=== PATIENT | female | born 1940 | race Caucasian/White ===

== ENCOUNTER 2017-02-14 19:24 | Emergency (ER) | payer MEDICARE ==
--- NOTE | 2017-02-14 19:52 | UC ---
Dizzy HPI HPI Summary: The patient comes in today for: 1. Laceration: Onset: 12 hours ago. Palliative/provocative: Sore to touch Quality: Soreness Region: Back of head. Severity: 0/10 Time: Constant. Associated symptoms: Tetanus: "Up to date." Event: She was in her chair at home ([place]) and reaching forward when she fell out and hit her head on the rocker chair. She did not have any LOC and she called the nurse who evaluated the patient. Eventually, she was seen by the nurse who cleaned it and used several dressing which did not help. She was later at that time to come here to have the laceration repaired. When the patient was at our front desk auxiliary, she stated that she felt woozy and therefore she was brought back to a room and had an EKG done. She denies any problem but her laceration and her health care proxy state that this is her history. * - History Of Current Complaint Stated Complaint: DIZZINESS Time Seen by Provider: 02/14/17 19:39 Hx Obtained From: Patient, Family/Managed Care Nurse - Allergies/Home Medications Allergies/Adverse Reactions: Allergies Allergy/AdvReac Type Severity Reaction Status Date / Time Epinephrine Allergy Severe See Comment Verified 05/03/13 10:44 PMH/Surg Hx/FS Hx/Imm Hx Previously Healthy: No - Parkinson's disease, irritable bowel, ulcerative proctivits. Endocrine History Of: Reports: Thyroid Disease - HYPO Denies: Diabetes, Hyperthyroidism, Hypothyroidism, Dyslipidemia Cardiovascular History Of: Denies: Cardiac Disorders, Hypertension, Pacemaker/ICD, Myocardial Infarction , Congestive Heart Failure, Atrial Fibrillation, Deep Vein Thrombosis, Bleeding Disorders Respiratory History Of: Denies: COPD, Asthma, Bronchitis, Pneumonia, Pulmonary Embolism GI/ History Of: Reports: Ulcer Denies: Gastroesophageal Reflux, Gastrointestinal Bleed, Gall Bladder Disease , Kidney Stones, Diverticulitis, Renal Disease, Urosepsis Neurological History Of: Denies: TIA, CVA, Dementia, Seizures, Migraine Psychological History Of: Reports: Anxiety Denies: Depression, Bipolar Disorder, Schizophrenia, Post Traumatic Stress Disorder Cancer History Of: Denies: Lung Cancer, Colorectal Cancer, Breast Cancer, Prostate Cancer, Cervical Cancer Other History Of: Negative For: HIV, Hepatitis B, Hepatitis C, Anticoagulant Therapy - Surgical History Surgical History: Yes Surgery Procedure, Year, and Place: LEFT EYE CATARACT - 4 YEARS AGO [facility]. TONSIL - 194. 1951 - [place] [facility] - Family History Known Family History: Positive: Hypertension Negative: Cardiac Disease - Social History Occupation: Retired Lives: Alone Alcohol Use: None Substance Use Type: None Smoking Status (MU): Never Smoked Tobacco Review of Systems Constitutional: Negative Skin: Negative Eyes: Negative ENT: Negative Respiratory: Negative Cardiovascular: Negative All Other Systems Reviewed And Are Negative: Yes Physical Exam Triage Information Reviewed: Yes Appearance: Well-Appearing, No Pain Distress, Well-Nourished Vital Signs Reviewed: Yes Eyes: Positive: Conjunctiva Clear. Negative: Discharge ENT: Positive: Hearing grossly normal. Negative: Pharyngeal erythema, Nasal congestion, Nasal drainage, TM bulging, TM dull, TM red, Tonsillar swelling, Tonsillar exudate Dental: Negative: Gross Decay/Caries @, Dental Fracture @ Neck: Positive: Supple, Nontender, No Lymphadenopathy. Negative: Nuchal Rigidity Respiratory: Positive: Lungs clear, No respiratory distress, No accessory muscle use. Negative: Crackles, Wheezing Cardiovascular: Positive: RRR, No Murmur Abdomen Description: Positive: Nontender, No Organomegaly, Soft. Negative: Distended, Guarding Musculoskeletal: Positive: Strength Intact, ROM Intact, No Edema, Other: - she has a tremor of her left lower leg and a mask facies consistent with Parkinsons. She has rigidity of her musculature and shuffling gait.. Negative : ROM Limited @ Neurological: Positive: Alert, Muscle Tone Normal Psychological: Positive: Normal Response To Family, Age Appropriate Behavior, Consolable Skin: Positive: Other - Laceration on the back of her head.. Negative: rashes, breakdown Procedures - Laceration/Wound Repair 1 Location: head Description: Irregular Betadine Prep?: No Laceration/Wound Explored: clean Closure: [place] #__ - 2 Sterile Dressing Applied?: No Dizzy Course/Dx - Differential Dx/Diagnosis Provider Diagnoses: high blood pressure. Laceration back of head. Discharge - Discharge Plan Condition: Stable Disposition: HOME Patient Education Materials: [facility] (ED) Referrals: An Wilkins MD [Primary Care Provider] - 1 Week (Please follow up with your primary care provider in about 7 days to have your robe removed. If there is any increasing redness or tenderness or swelling, or discharge, please be seen sooner. Take [id number] medications as needed for pain.)
[2017-02-14 20:20] VITALS: BP 168/80
== END 2017-02-14 21:39 | disposition home or self-care (01) ==
LOC: UCEAST 19:24
DX: S01.01XA Laceration without foreign body of scalp, initial encounter (principal); W07.XXXA Fall from chair, initial encounter; Y93.89 Activity, other specified; Y92.199 Unspecified place in other specified residential institution as the place of occurrence of the external cause; R42 Dizziness and giddiness; R03.0 Elevated blood-pressure reading, without diagnosis of hypertension; G20 Parkinson's disease; E03.9 Hypothyroidism, unspecified; Z98.42 Cataract extraction status, left eye
CPT/HCPCS: 12001; 12020; 93005; 99202; G0463

== ENCOUNTER 2017-12-12 22:52 | Emergency (ER) | payer MEDICARE ==
[2017-12-12] MEDS ORDERED: LORazepam INJ* 2 MG/ML 1 ML VIAL IV PUSH ONE (23:24)
[2017-12-12] MEDS ORDERED: Labetalol IV* 5 MG/ML 20 ML VIAL IV PUSH ONE (23:24)
[2017-12-13] MEDS ORDERED: Carbidopa/Levodop 25/100 MG TAB(*) PO ONE (00:37)
[2017-12-13] MEDS ORDERED: Gabapentin CAP(*) 100 MG PO ONE (00:38)
[2017-12-13 00:57] VITALS: BP 192/81
--- NOTE | 2017-12-13 01:23 | ED ---
Dimple Jerez Edward, scribed for Demi Sanders MD on 12/12/17 at 2313 . Hypertension - HPI Summary HPI Summary: 77 y/o female BIBA c/o general weakness starting earlier today. Sx not aggravated or alleviated by anything. Associated sx: intermittent L leg twitching today and L toe cramping. The twitching is worse than normal. Pt states she doesn't believe she can get up and walk currently. Pt typically uses a walker. Denies history of seizure. PMHx Parkinson's and anxiety. - History of Current Complaint Chief Complaint: EDHypertension Stated Complaint: WEAKNESS Time Seen by Provider: 12/12/17 22:59 Hx Obtained From: Patient Hx Last Menstrual Period: menopause Onset/Duration: Started Hours Ago Timing: Constant Aggravating Factor(s): Nothing Alleviating Factor(s): Nothing Associated Signs & Symptoms: Other: - twitching at LLE and cramping at L toes - Allergies/Home Medications Allergies/Adverse Reactions: Allergies Allergy/AdvReac Type Severity Reaction Status Date / Time MS Epinephrine [Epinephrine] Allergy Severe See Comment Verified 05/03/13 10:44 PMH/Surg Hx/FS Hx/Imm Hx Previously Healthy: No Endocrine/Hematology History: Reports: Hx Thyroid Disease - HYPO Denies: Hx Anticoagulant Therapy, Hx Diabetes, Hx Sickle Cell Disease Cardiovascular History: Denies: Hx Congestive Heart Failure, Hx Deep Vein Thrombosis, Hx Hypertension , Hx Myocardial Infarction, Hx Pacemaker/ICD, Other Cardiovascular Problems/ Disorders Respiratory History: Denies: Hx Asthma, Hx Chronic Obstructive Pulmonary Disease (COPD), Hx Lung Cancer, Hx Pneumonia, Hx Pulmonary Embolism, Other Respiratory Problems/ Disorders GI History: Reports: Hx Ulcer Denies: Hx Gall Bladder Disease, Hx Gastrointestinal Bleed, Hx Urosepsis History: Denies: Hx Kidney Stones, Hx Renal Disease, Other Problems/Disorders Musculoskeletal History: Reports: Hx Arthritis - KNEES Sensory History: Reports: Hx Cataracts, Hx Contacts or Glasses - GLASSEES Denies: Hx Hearing Aid Opthamlomology History: Reports: Hx Cataracts, Hx Contacts or Glasses - GLASSEES Neurological History: Denies: Hx Dementia, Hx Migraine, Hx Seizures, Hx Transient Ischemic Attacks (TIA), Other Neuro Impairments/Disorders Psychiatric History: Reports: Hx Anxiety Denies: Hx Depression, Hx Schizophrenia, Hx Bipolar Disorder - Surgical History Surgery Procedure, Year, and Place: LEFT EYE CATARACT - 4 YEARS AGO [facility] [place]. TONSIL - 1949. 1952 - [place] Hx Anesthesia Reactions: No Infectious Disease History: No Infectious Disease History: Reports: Hx Shingles - x2 Denies: History Other Infectious Disease, Traveled Outside the [place] in Last 30 Days - Family History Known Family History: Positive: Hypertension Negative: Cardiac Disease - Social History Alcohol Use: None Hx Substance Use: No Substance Use Type: Reports: None Hx Tobacco Use: No Smoking Status (MU): Never Smoked Tobacco Review of Systems Constitutional: Negative Eyes: Negative ENT: Negative Cardiovascular: Negative Respiratory: Negative Gastrointestinal: Negative Genitourinary: Negative Positive: Other - L toe cramping Skin: Negative Neurological: Other - L leg twitching Positive: Weakness Psychological: Normal All Other Systems Reviewed And Are Negative: Yes Physical Exam - Summary Physical Exam Summary: VITAL SIGNS: Reviewed. GENERAL: Patient is a well-developed and nourished female who is lying comfortable in the stretcher. Patient is not in any acute respiratory distress. HEAD AND FACE: No signs of trauma. No ecchymosis, hematomas or skull depressions. No sinus tenderness. EYES: PERRLA, EOMI x 2, No injected conjunctiva, no nystagmus. EARS: Hearing grossly intact. Ear canals and tympanic membranes are within normal limits. MOUTH: Oropharynx within normal limits. NECK: Supple, trachea is midline, no adenopathy, no JVD, no carotid bruit, no c- spine tenderness, neck with full ROM. CHEST: Symmetric, no tenderness at palpation LUNGS: Clear to auscultation bilaterally. No wheezing or crackles. CVS: Regular rate and rhythm, S1 and S2 present, no murmurs or gallops appreciated. ABDOMEN: Soft, non-tender. No signs of distention. No rebound no guarding, and no masses palpated. Bowel sounds are normal. EXTREMITIES: Static tremors of L foot. NEURO: Alert and oriented x 3. No acute neurological deficits. Speech is normal and follows commands. SKIN: Dry and warm Triage Information Reviewed: Yes Vital Signs On Initial Exam: Initial Vitals Temp Pulse Resp BP Pulse Ox 98.5 F 90 19 199/89 94 12/12/17 22:57 12/12/17 22:57 12/12/17 22:57 12/12/17 22:57 12/12/17 22:57 Vital Signs Reviewed: Yes Diagnostics - Vital Signs Vital Signs Temp Pulse Resp BP Pulse Ox 12/12/17 22:57 98.5 F 90 19 199/89 94 - Laboratory Lab Statement: Any lab studies that have been ordered have been reviewed, and results considered in the medical decision making process. - EKG 1 EKG Interpretation: SR @ 83 BPM. Normal axis normal interval no ischemic changes. Hypertension Course/Dx - Course Assessment/Plan: EKG normal. CXR negative. Pt declined IV and other treatment at this time. Pt wants to be sent back to the long term and will be sent back. Pt signed out AMA. - Diagnoses Provider Diagnoses: Hypertension, Parkinsons Discharge - Discharge Plan Condition: Stable Disposition: AGAINST MEDICAL ADVICE Referrals: An Wilkins MD [Primary Care Provider] - The documentation as recorded by the Dimple gordon Edward accurately reflects the service I personally performed and the decisions made by , Demi Sanders MD.
--- NOTE | 2017-12-13 07:49 | RAD ---
HISTORY: Weakness COMPARISONS: None VIEWS: 1: frontal portable view of the chest at 11:54 PM FINDINGS: LINES AND TUBES: None. CARDIOMEDIASTINAL SILHOUETTE: The cardiomediastinal silhouette is normal for portable technique. PLEURA: The costophrenic angles are sharp. No pleural abnormalities are noted. LUNG PARENCHYMA: There is minimal linear opacification of left lung base. ABDOMEN: The upper abdomen is clear. There is no subphrenic gas. BONES AND SOFT TISSUES: No bone or soft tissue abnormalities are noted. IMPRESSION: MINIMAL LINEAR ATELECTASIS VERSUS PLEUROPARENCHYMAL SCARRING OF THE LEFT LUNG BASE. NO ACTIVE CARDIOPULMONARY DISEASE
== END 2017-12-13 01:10 | disposition left against medical advice (07) ==
LOC: ED 22:52
DX: I10 Essential (primary) hypertension (principal); G20 Parkinson's disease; R53.1 Weakness
CPT/HCPCS: 71045; 93005; 99283; A9270-GY

== ENCOUNTER → 2018-11-26 16:34 | Emergency (ER) | payer MEDICARE ==
[~2018-11-26 16:34] MED LIST: Baclofen TAB* 10 MG PO ONE; Carbidopa/Levodop 25/100 MG TAB(*) PO ONE; Gabapentin CAP(*) 100 MG PO ONE; Hydrochlorothiazide TAB* 25 MG PO ONE; LORazepam INJ* 2 MG/ML 1 ML VIAL IV PUSH ONE; LORazepam TAB(*) 1 MG PO ONE; cloNIDine TAB* 0.1 MG PO ONE; clonazePAM TAB(*) 1 MG PO ONE
--- OUTSIDE RECORDS SUMMARY | 2018-11-26 16:41 | XMS REPORT | Continuity of Care Document ---
:1940 External Reference #:[id number] Author Name Sandra Chirinos Care Team Providers Name Role Phone An Wilkins MD Primary Care Physician Unavailable Payers Type Date Identification Numbers Payment Provider Subscriber Effective: 2012 Policy Number: [id number] Medicare Blue Ppo An Lebroner PayID: [id number] [address] [address] [place] [address] Policy Number: [id number] Formerly [facility] nA Lebroner PayID: [id number] [place] [address] Expires: 2012 Policy Number: [id number] Medicare Blue Ppo An Lebroner PayID: [id number] [address] [address] [place] [address] Advance Directives Description No Information Available Problems Date Description Provider Status Onset: 09/10/2014 Parkinson's disease Tiffanie Castillo M.D. Active Onset: 11/29/2014 Restless legs Sara Baptiste, N.P. Active Onset: 11/29/2014 Hypothyroidism Sara Oliva, N.P. Active Onset: 11/29/2014 Osteopenia Sara Oliva, N.P. Active Onset: 11/29/2014 Nonspecific ulcerative proctitis Sara Oliva, N.P. Active Onset: 11/29/2014 Osteochondropathy Sara Oliva, N.P. Active Onset: 11/16/2016 Disorder of bone Saraabdelrahman Baptiste, N.P. Active Onset: 01/13/2018 Olecranon bursitis Pablito Valedz MD Active Onset: 02/15/2012 Herpes zoster Maye Garcia, Resolved N.P. Resolved: 12/22/2013 Family History Date Family Member(s) Problem(s) Comments Father due to Colon Cancer () Father due to Prostate Cancer () Father due to myasthenia gravis () - age-81 Mother due to Parkinsons Disease () - 81 Social History Type Date Description Comments Sex Unknown Marital Status Single Lives With Assisted living Occupation Teacher third grade Hand Dominance Left-handed Hand Dominance Ambidextrous ETOH Use Denies alcohol use Tobacco Use Start: Unknown Patient has never smoked Smoking Status Reviewed: 11/16/18 Patient has never smoked Exercise Type/Frequency Exercises regularly Allergies, Adverse Reactions, Alerts Description No Known Drug Allergies Medications Medication Date Status Form Strength Qnty SIG Indications Ordering Provider Requip XL 05/17 Active Tablets ER 6mg 30tab 1 tab by José Luis 24HR s mouth 30 CrispinAnnaDAndrae minutes before bedtime Vitamin B12 04/22 Active Tablets ER 1000mcg 30tab 1 by mouth Tiffanie s every day Chapo Castillo Polyethylene 04/22 Active Packet 3350NF 8.5 grams Tiffanie Glycol 335 mixed with Cowderyvette, 6 oz fluid M.D. by mouth every day Carbidopa-Levo 03/10 Active Tablets 25-100mg 90tab 1.5 Tiffanie dopa s tablets by yesica Castillo @ M.D. 5am,8am,11 :30am, 2pm, 4:30pm, and 1 tablet at 7 pm Clonazepam 12/14 Active Tablets 0.5mg 10tab /2 tab by F41.1 s mouth MAKSIM Wagner twice a day Azilect 11/15 Active Tablets 0.5mg 30tab take one s tablet MAKSIM Wagner daily Baclofen 06/18 Active Tablets 10mg 120ta may take 1 G24.8 bs by mouth [place], four times M.D. a day Vitamin D 11/29 Active Tablets 1000Unit 30tab 1 by mouth s every day Oliva, N.P. Acetaminophen 11/29 Active Tablets 325mg 100ta 1 tab po q Sara bs 4 hours Oliva, prn of N.P. pain or leg/foot crampas Sinemet CR 07/06 Active Tablets ER 25-100mg 270ta take 1 by Tiffanie bs mouth at Jonathan, 5:00 in M.D. the morning and 2 tabs by mouth at at bedtime Miralax Active Powder 3350NF 30 17 gm as Sara / s 1/2 dose Oliva, every day N.P. Levothyroxine Active Tablets 75mcg 30tab 1 Tab By Sara Sodium /0000 s Mouth Oliva, Every Day N.P. except two days a week: 37.5 MG Artificial Active Solution 0.1-0.3% 1 gtt prn Unknown Tears /0000 each eye Cortisporin-TC Active Suspension 3.3-3-10- 3 gtts to Unknown / 0.5mg/ml each ear tid prn Gabapentin Active Capsules 100mg 4 tabs at Unknown /0000 lunch, 2 tabs at 7 PM, 2 tabs at 10 PM Biotene Dry Active Liquid as Unknown Mouth /0000 directed Milk Of Active Suspension 400mg/5ML 30ml by Unknown Magnesia / mouth every day as needed Paroxetine HCL Active Tablets 20mg 1 by mouth Unknown /0000 every day Vitamin B-12 Active Tablets 1000mcg take 1 by Unknown /0000 mouth each day Amantadine HCL 09/14 Hx Capsules 100mg 30cap 1 by mouth G20 s every [facility], - morning M.D. 11/16 Baclofen 07/15 Hx Tablets 5mg 90tab 5 mg po s q3hrs prn Chapo Brown - - may have 08/23 one prn dose (in addition to routine tid dosing) must be 2 hrs before or after routine dose. Baclofen 07/15 Hx Tablets 5mg 90tab s Chapo Brown - 09/13 Baclofen 07/15 Hx Tablets 5mg 90tab 5 mg po s tid, no Chapo Brown - need to 08/23 notify resident refuses. MDD 20 mg including prn dosing Ropinirole HCL 04/22 Hx Tablets ER 2mg 90tab take 3 by R53.83 Tiffanie 24HR s mouth at [facility], - bedtime M.D. 05/17 Requip XL 04/04 Hx Tablets ER 4mg 30tab 2 tabs R53.83 Sara 24HR s (8mg) po q Oliva, - hs N.P. 04/22 Sinemet 12/17 Hx Tablets 25-100mg 90tab 1.5 tabs s at 5 Am, 8 [facility], - Am, 11:30 M.D. 0516 Am, 2 PM, 4:30 PM, 7 PM Sertraline HCL 01/23 Hx Tablets 50mg 30tab 1 by mouth s every day, Jonathan, - takes 25 M.D. 06 MG in Am, 75 MG in PM Requip XL 12/09 Hx Tablets ER 2mg 90tab take by 24HR s mouth Jonathan, - every M.D. 06/17 night at bedtime in addition to 8mg tablet Azilect 12/09 Hx Tablets 1mg 90tab 1 by mouth s every day Jonathan, - M.D. 11/17 Sertraline HCL 11/29 Hx Tablets 25mg 30tab take one s tablet by Oliva, - mouth N.P. 01/23 morning Requip XL 11/12 Hx Tablets ER 6mg 30tab 1 tab PO 24HR s QHS Beth [employer] - 11/12 Requip XL 11/12 Hx Tablets ER 8mg 90tab every 24HR s enening at [facility], - 8:30pm by M.DAndrae 04/04 Azilect 11/06 Hx Tablets 0.5mg 60tab 1 tab by Sara s mouth Oliva, - daily x 1 N.P. 12/09 month increase to 2 tabs daily Requip XL 09/10 Hx Tablets ER 2mg 90tab take by 332.0 24HR s mouth Jonathan, - every M.D. 10/02 night at bedtime in addition to 4mg tablet Anucort-HC 09/07 Hx Suppository 25mg 30uni instill ts one [place] - rectally on, N.P. 09/05 q Requip XL 04/19 Hx Tablets ER 4mg 30tab 1 tab by 332.0 24HR s mouth qhs. Jonathan, - M.D. 11/12 Requip XL 02/09 Hx Tablets ER 2mg 60tab try 24HR s increasing Jonathan, - to 2 M.D. 07/12 tablets po qhs. If tolerated we will switch to 4mg xr tablets. Sinemet 07/06 Hx Tablets 25-100mg 195ta take 1 Sara /2011 bs tablets by Oliva, - mouth at N.P. 10/18 Metamucil Hx Powder 28.3% 30uni 1 teaspoon Sara /0000 ts once a day Oliva, - N.P. 07/03 Vitamin D-1000 Hx Tablets 1000Unit 30tab 1 po qd Unknown /0000 s - 11/29 Multivitamins Hx Tablets 1/2 tab po Unknown /0000 daily - 11/13 Finacea Hx Gel 15% 50uni apply to Unknown /0000 ts affected - area once 11/29 Optivar Hx Solution 0.05% 3bott 1 drop to Sara /0000 les each eye Oliva, - daily N.P. 10/18 Proctosol HC Hx Cream 2.5% 28.35 apply Sara /0000 0gm rectally Oliva, - twice a N.P. needed Xanax Hx Tablets 0.25mg 15tab 1/2 tab by Sara /0000 s mouth Oliva, - every day N.P. 12/14 and 10/19 tab prn Sinemet Hx Tablets 25-100mg 255ta 1.5 tabs Tiffanie /0000 bs at 5 in [facility], - the M.D. 04/21 morning, 8am, 11am, 2 pm, 4:30 at night, and 1 tablet at 7pm Acetaminophen 00/00 Hx Suppository 650mg 1 as Unknown /0000 needed Q4 - hours as 02/22 Immunizations CPT Code Status Date Vaccine Lot # [id number] Given 07/30/2010 Influenza Virus 3Yrs & Over [id number] Given 10/22/2009 Influenza Virus Vaccine, Pandemic Formulation 47010 Given 10/22/2009 Administration Swine Flu Shot Vital Signs Date Vital Result Comment 11/16/2018 11:37am Heart Rate 80 /min BP Systolic Sitting 128 mmHg BP Diastolic Sitting 80 mmHg 09/27/2018 10:11am Heart Rate 78 /min BP Systolic Sitting 106 mmHg BP Diastolic Sitting 60 mmHg Respiratory Rate 22 /min Body Temperature 97.7 F O2 % BldC Oximetry 96 % 09/14/2018 11:00am Height 64 inches 5'4" Weight 136.00 lb Heart Rate 70 /min BP Systolic 140 mmHg BP Diastolic 78 mmHg BMI (Body Mass Index) 23.3 kg/m2 04/22/2018 11:08am Weight 144.50 lb Heart Rate 72 /min BP Systolic Sitting 120 mmHg BP Diastolic Sitting 80 mmHg Respiratory Rate 20 /min 01/13/2018 10:56am Height 64 inches 5'4" Weight 141.00 lb BP Systolic 122 mmHg BP Diastolic 64 mmHg Respiratory Rate 15 /min Pain Level 1 BMI (Body Mass Index) 24.2 kg/m2 12/17/2017 9:00am Height 64 inches 5'4" Weight 141.00 lb Heart Rate 80 /min BP Systolic Sitting 128 mmHg BP Diastolic Sitting 70 mmHg BMI (Body Mass Index) 24.2 kg/m2 12/14/2017 9:58am Weight 141.00 lb Heart Rate 79 /min BP Systolic Sitting 118 mmHg BP Diastolic Sitting 68 mmHg Respiratory Rate 18 /min Body Temperature 97.4 F O2 % BldC Oximetry 95 % 11/18/2017 10:02am Weight 142.00 lb Heart Rate 72 /min BP Systolic 122 mmHg BP Diastolic 68 mmHg Respiratory Rate 24 /min Body Temperature 97.5 F O2 % BldC Oximetry 98 % 09/07/2017 9:51am Heart Rate 70 /min BP Systolic Sitting 120 mmHg BP Diastolic Sitting 78 mmHg Respiratory Rate 18 /min Body Temperature 97.0 F 06/18/2017 11:19am Height 64 inches 5'4" Weight 142.00 lb Heart Rate 72 /min BP Systolic Sitting 124 mmHg BP Diastolic Sitting 76 mmHg Respiratory Rate 18 /min BMI (Body Mass Index) 24.4 kg/m2 03/17/2017 10:32am Height 64 inches 5'4" Weight 140.00 lb Heart Rate 68 /min BP Systolic Sitting 122 mmHg BP Diastolic Sitting 64 mmHg Respiratory Rate 14 /min BMI (Body Mass Index) 24.0 kg/m2 02/22/2017 10:08am Weight 143.00 lb Heart Rate 79 /min BP Systolic Sitting 122 mmHg BP Diastolic Sitting 76 mmHg Respiratory Rate 20 /min Body Temperature 98.8 F O2 % BldC Oximetry 97 % 12/18/2016 11:31am Height 64 inches 5'4" Weight 143.00 lb Heart Rate 72 /min BP Systolic Sitting 124 mmHg BP Diastolic Sitting 68 mmHg Respiratory Rate 14 /min BMI (Body Mass Index) 24.5 kg/m2 11/16/2016 10:15am Weight 148.31 lb Heart Rate 84 /min BP Systolic Sitting 160 mmHg BP Diastolic Sitting 88 mmHg Respiratory Rate 20 /min Body Temperature 97.5 F O2 % BldC Oximetry 97 % 06/17/2016 11:31am Height 64 inches 5'4" Weight 144.38 lb Heart Rate 72 /min BP Systolic Sitting 122 mmHg BP Diastolic Sitting 72 mmHg Respiratory Rate 14 /min BMI (Body Mass Index) 24.8 kg/m2 02/24/2016 1:58pm Height 64 inches 5'4" Weight 151.00 lb Heart Rate 78 /min BP Systolic Sitting 126 mmHg BP Diastolic Sitting 80 mmHg Respiratory Rate 16 /min BMI (Body Mass Index) 25.9 kg/m2 10/21/2015 10:58am Height 64 inches 5'4" Weight 150.00 lb Heart Rate 72 /min BP Systolic Sitting 148 mmHg BP Diastolic Sitting 74 mmHg Respiratory Rate 16 /min BMI (Body Mass Index) 25.7 kg/m2 08/09/2015 3:04pm Heart Rate 73 /min BP Systolic Sitting 130 mmHg BP Diastolic Sitting 74 mmHg Respiratory Rate 20 /min Body Temperature 97.6 F 08/05/2015 3:31pm Weight 155.00 lb Heart Rate 58 /min BP Systolic Sitting 120 mmHg BP Diastolic Sitting 60 mmHg Respiratory Rate 18 /min Body Temperature 96.3 F O2 % BldC Oximetry 95 % 07/04/2015 11:50am Height 64 inches 5'4" Weight 152.38 lb Heart Rate 56 /min BP Systolic Sitting 114 mmHg BP Diastolic Sitting 76 mmHg Respiratory Rate 14 /min BMI (Body Mass Index) 26.2 kg/m2 01/23/2015 9:45am Weight 159.00 lb Heart Rate 76 /min BP Systolic Sitting 156 mmHg BP Diastolic Sitting 84 mmHg Respiratory Rate 16 /min 11/29/2014 1:12pm Weight 161.38 lb Heart Rate 77 /min BP Systolic 128 mmHg BP Diastolic 70 mmHg Respiratory Rate 20 /min O2 % BldC Oximetry 96 % 10/02/2014 11:59am Height 64.7 inches 5'4.70" Weight 169.12 lb Heart Rate 88 /min BP Systolic 140 mmHg BP Diastolic 80 mmHg Respiratory Rate 24 /min Body Temperature 96.1 F Pain Level 0 O2 % BldC Oximetry 98 % BMI (Body Mass Index) 28.4 kg/m2 09/10/2014 11:48am Height 64 inches 5'4" Weight 170.50 lb Heart Rate 68 /min BP Systolic Sitting 132 mmHg BP Diastolic Sitting 76 mmHg Respiratory Rate 16 /min BMI (Body Mass Index) 29.3 kg/m2 05/14/2014 11:01am Height 64 inches 5'4" Weight 164.00 lb Heart Rate 70 /min BP Systolic Sitting 140 mmHg BP Diastolic Sitting 78 mmHg Respiratory Rate 16 /min BMI (Body Mass Index) 28.1 kg/m2 12/22/2013 1:28pm Heart Rate 80 /min BP Systolic 138 mmHg BP Diastolic 70 mmHg Respiratory Rate 20 /min Body Temperature 97.5 F 11/13/2013 11:36am Heart Rate 80 /min BP Systolic Sitting 140 mmHg BP Diastolic Sitting 70 mmHg Respiratory Rate 16 /min 05/05/2013 9:35am Heart Rate 97 /min BP Systolic 128 mmHg BP Diastolic 72 mmHg Respiratory Rate 20 /min Body Temperature 96.2 F 04/19/2013 2:34pm Heart Rate 84 /min BP Systolic Sitting 152 mmHg BP Diastolic Sitting 82 mmHg Respiratory Rate 16 /min 02/15/2012 4:09pm Heart Rate 82 /min BP Systolic 122 mmHg BP Diastolic 72 mmHg Respiratory Rate 24 /min Body Temperature 97.1 F Results Test Date Facility Test Result H/L Range Note Laboratory test 11/18/2015 [facility] TSH 0.66 ?IU/mL N 0.34- 5.[address] ([place] [address] Stim Horm) [phone] Procedures Date Code Description Status 09/27/2018 26276 Remove Impacted Cerumen Completed 08/09/2015 00125 Remove Impacted Cerumen Completed 08/05/2015 76872 Remove Impacted Cerumen Completed 12/22/2013 86726 Remove Impacted Cerumen Completed 09/02/2011 95683 Remove Impacted Cerumen Completed 07/24/2010 54908 Remove Impacted Cerumen Completed 12/30/2009 05796 Remove Impacted Cerumen Completed 05/02/2009 34597 Remove Impacted Cerumen Completed 04/29/2009 79658 Remove Impacted Cerumen Completed Encounters Type Date Location Provider Dx Diagnosis Office Visit 09/14/2018 [facility] Tiffanie Castillo, G20 Parkinson's 10:30a M.DAndrae disease G25.81 Restless legs syndrome R53.83 Other fatigue G24.9 Dystonia, unspecified M17.9 Osteoarthritis of knee, unspecified Office Visit 04/22/2018 10:30a [facility] Tiffanie Castillo, G20 [facility] disease G25.81 Restless legs syndrome R53.83 Other fatigue G24.9 Dystonia, unspecified Office Visit 01/13/2018 10:45a [facility] F M70.21 [facility] MD José Miguel bursitis, right C.M.A. 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 Office Visit 12/14/2017 8:21a [facility] Melvin Wagner, I15.9 Secondary Home [employer] hypertension, unspecified F41.1 Generalized anxiety disorder G20 Parkinson's disease G25.81 Restless legs syndrome Office Visit 11/18/2017 10:35a [facility] Melvin Dixon S50.01xA Contusion of Home MAKSIM Peres right elbow, initial encounter Office Visit 09/07/2017 10:22a [facility] [place] Garcia W19.xxxA Unspecified fall, Home MAKSIM Wagner initial encounter M25.531 Pain in right wrist M25.521 Pain in right elbow M53.3 Sacrococcygeal disorders, not elsewhere classified S50.01xA Contusion of right elbow, initial encounter S60.211A Contusion of right wrist, initial encounter Office Visit 06/18/2017 11:00a [facility] Maggy Cruz [facility] M.D. disease G24.8 Other dystonia Office Visit 03/17/2017 10:30a [facility] Tiffanie Castillo G20 [facility] M.D. disease F41.1 Generalized anxiety disorder Office Visit 02/22/2017 10:17a [facility] [place] Baptiste, Z48.02 Encounter for Home N.P. removal of sutures Office Visit 12/18/2016 11:30a [facility] Tiffanie Castillo G2Nancy [facility] M.D. disease F41.1 Generalized anxiety disorder Office Visit 11/16/2016 10:45a Lauryn Baptiste, E03.9 Hypothyroidism , Intermediate N.P. unspecified M85.9 Disorder of bone density and structure, unspecified G20 Parkinson's disease L84 Corns and callosities Office Visit 06/17/2016 11:30a [facility] Tiffanie Castillo G20 [facility] M.D. disease F41.1 Generalized anxiety disorder Office Visit 02/24/2016 2:00p [facility] Tiffanie Castillo G20 [facility] M.D. disease F41.1 Generalized anxiety disorder Office Visit 10/21/2015 11:00a [facility] Tiffanie Castillo G20 [facility] M.D. disease F41.1 Generalized anxiety disorder Office Visit 07/04/2015 11:45a [facility] Tiffanie Castillo, 332.0 [facility] M.D. Agitans 333.79 Other Acquired Torsion Dystonia 300.02 Anxiety Disorder Generalized Office Visit 01/23/2015 9:30a [facility] Tiffanie Castillo, 332.0 [facility] M.D. Agitans 333.79 Other Acquired Torsion Dystonia 300.02 Anxiety Disorder Generalized Office Visit 11/29/2014 1:58p Lauryn Baptiste, 733.90 Bone & Cartilage Home N.P. Disorder Unspec 332.0 Paralysis Agitans 333.94 Restless Leg Syndrome 244.8 Hypothyroidism Other Spec 556.2 Ulcerative Chronic Proctitis 300.02 Anxiety Disorder Generalized 300.02 Anxiety Disorder Generalized 556.2 Ulcerative Chronic Proctitis 244.8 Hypothyroidism Other Spec 333.94 Restless Leg Syndrome 332.0 Paralysis Agitans 733.90 Bone & Cartilage Disorder Unspec Office Visit 10/02/2014 11:31a [facility] Nursing Evgeny Truong, 785.1 Palpitations Home [employer] Office Visit 09/10/2014 11:15a [facility] Tiffanie Castillo 332.0 Paralysis [facility] M.D. Office Visit 05/14/2014 11:00a [facility] Tiffanie Castillo 332.0 Paralysis [facility] M.DAndrae 333.79 Other Acquired Torsion Dystonia Office Visit 11/13/2013 11:30a [facility] Tifafnie Castillo 332.0 [facility] M.DAndrae Agitans 333.79 Other Acquired Torsion Dystonia Office Visit 09/07/2013 [facility] Melvin Villavicencio 789.05 Pain Abdominal 1:45p Home Radha, N.P. Periumbilic Office Visit 07/12/2013 Helene Castillo M.D. 332.0 Paralysis 11:45a [facility]rolog[facility] Office Visit 05/05/2013 [facility] Melvin Baptiste NLiliam. 782.8 Skin Texture 9:51a Home Changes 782.8 Skin Texture Changes Office Visit 04/19/2013 2:30p [facility] Tiffanie Castillo 332.0 [facility] M.D. Agitans Office Visit 02/09/2013 3:00p [facility] Tiffanie Castillo 332.0 [facility] M.DAndrae Agitans Office Visit 01/11/2013 11:45a [facility] Tiffanie Castillo 332.0 [facility] M.D. Agitans Office Visit 07/06/2012 11:00a [facility] Tiffanie Castillo 332.0 [facility] M.D. Agitans Office Visit 02/15/2012 11:36a Lauryn Villavicencio 053.29 Herpes Zoster Home Radha, Fred N.P. Plan of Treatment Future Appointment(s):03/10/2019 1:30 pm - Tiffanie Castillo M.D. at [facility] - Tiffanie Castillo M.D.G20 Parkinson's diseaseFollow up:schedule follow up visits every 12 weeks (30 min) Recommendations:Stop amantadine. Look for improvement in hallucinations. We started this to help with dyskinesias (wiggly movements) and fatigue. She did not feel this helped. Watch to see if dyskinesias get worse with stopping. Agree with physical therapy. Agree with foot massages Agree with foot/ leg soaks.G25.81 Restless legs luzvhchuS95.9 Dystonia, unspecifiedRecommendations: Increase baclofen to 10mg four a times a day, so that one dose is just before twzhufxA37.9 Anxiety disorder, unspecifiedRecommendations:work on as needed deep breathin deep breaths, counting backwards from 10.
[2018-11-26 18:08] LABS: ABS Basophils 0 10^3/ul (0-0.2); ABS Eosinophils 0 10^3/ul (0-0.6); ABS Lymphocytes 0.7 10^3/ul (1.0-4.8); ABS Monocytes 0.3 10^3/ul (0-0.8); ABS Neutrophils 5.1 10^3/ul (1.5-7.7); ABS Nucleated RBC 0 10^3/ul; Eosinophil % 0.4 %; Hematocrit 39 % (35-47); Lymphocyte % 11.7 %; Mean Corpuscular HGB Conc 34 g/dl (31-36); Mean Corpuscular Hemoglobin 31 pg (27-31); Mean Corpuscular Volume 93 fL (80-97); Mean Platelet Volume 6.3 fL (7.4-10.4); Nucleated Red Blood Cells % 0; Platelet Count 435 10^3/ul (150-450); Red Blood Count 4.18 10^6/ul (4.00-5.40); Red Cell Distribution Width 14 % (10.5-15); White Blood Count 6.2 10^3/ul (3.5-10.8)
[2018-11-26 18:24] LABS: Albumin 4.4 g/dL (3.2-5.2); Albumin/Globulin Ratio 1.9 (1-3); BUN/Creatinine Ratio 37.9 (8-20); C Reactive Protein 1.24 mg/L (<8.01); Calcium 9.3 mg/dL (8.6-10.3); EGFR African American 104.3 (>60); EGFR Non-African American 86.2 (>60); Globulin 2.3 g/dL (2-4); Magnesium 2.3 mg/dL (1.9-2.7); Potassium 4.4 mmol/L (3.5-5.0); Total Bilirubin 0.3 mg/dL (0.2-1.0); Total Protein 6.7 g/dL (6.4-8.9)
[2018-11-26 18:52] LABS: TSH (Thyroid Stimulating Horm) 1.17 mcIU/mL (0.34-5.60)
--- NOTE | 2018-11-26 19:40 | ED ---
Complex/Multi-Sys Presentation - HPI Summary HPI Summary: 78-year-old female presents today from [facility] for potential fever. She states that she has shortness breath that this is her baseline. She has pain in her legs but this is also normal for here. She denies any chest pain. No bowel pain. No nausea or vomiting. she states that her 4:30pm medication for Parkinsonism were never given to her. No headache. No sore throat. Denies any urinary symptoms. states that has tremors in legs that are her baseline. per notes from [facility] is being seen by neurology for tremors and they have been changing medication to see what works for her. per notes alot of her symptoms are anxiety related. she states only thing that is having leg pain. when asked if any of her symptoms where new she states no. per ems the patient was found to have a fever 99.3 and elevated blood pressure. patient denies any history of HTN. - History Of Current Complaint Chief Complaint: EDFever Time Seen by Provider: 11/26/18 17:40 - Allergies/Home Medications Allergies/Adverse Reactions: Allergies Allergy/AdvReac Type Severity Reaction Status Date / Time epinephrine AdvReac See Comment Verified 12/13/17 01:51 PMH/Surg Hx/FS Hx/Imm Hx Endocrine/Hematology History: Reports: Hx Thyroid Disease - HYPO Denies: Hx Anticoagulant Therapy, Hx Diabetes, Hx Sickle Cell Disease Cardiovascular History: Denies: Hx Congestive Heart Failure, Hx Deep Vein Thrombosis, Hx Hypertension , Hx Myocardial Infarction, Hx Pacemaker/ICD, Other Cardiovascular Problems/ Disorders Respiratory History: Denies: Hx Asthma, Hx Chronic Obstructive Pulmonary Disease (COPD), Hx Lung Cancer, Hx Pneumonia, Hx Pulmonary Embolism, Other Respiratory Problems/ Disorders GI History: Reports: Hx Ulcer Denies: Hx Gall Bladder Disease, Hx Gastrointestinal Bleed, Hx Urosepsis History: Denies: Hx Kidney Stones, Hx Renal Disease, Other Problems/Disorders Musculoskeletal History: Reports: Hx Arthritis - KNEES Sensory History: Reports: Hx Cataracts, Hx Contacts or Glasses - GLASSEES Denies: Hx Hearing Aid Opthamlomology History: Reports: Hx Cataracts, Hx Contacts or Glasses - GLASSEES Neurological History: Denies: Hx Dementia, Hx Migraine, Hx Seizures, Hx Transient Ischemic Attacks (TIA), Other Neuro Impairments/Disorders Psychiatric History: Reports: Hx Anxiety Denies: Hx Depression, Hx Schizophrenia, Hx Bipolar Disorder - Surgical History Surgery Procedure, Year, and Place: LEFT EYE CATARACT - 4 YE[place] A[place] [facility] [place] - 1949. 1952 - [place] [facility] Hx Anesthesia Reactions: No Infectious Disease History: No Infectious Disease History: Reports: Hx Shingles - x2 Denies: History Other Infectious Disease, Traveled Outside the [place] in Last 30 Days - Family History Known Family History: Positive: Hypertension Negative: Cardiac Disease - Social History Alcohol Use: None Hx Substance Use: No Substance Use Type: Reports: None Hx Tobacco Use: No Smoking Status (MU): Never Smoked Tobacco Review of Systems Positive: Fever - low grade Negative: Chest Pain Positive: Shortness Of Breath. Negative: Cough Positive: Myalgia - leg pain All Other Systems Reviewed And Are Negative: Yes Physical Exam Triage Information Reviewed: Yes Vital Signs On Initial Exam: Initial Vitals Temp Pulse Resp BP Pulse Ox 99 F 82 20 194/83 96 11/26/18 16:55 11/26/18 16:55 11/26/18 16:55 11/26/18 16:55 11/26/18 16:55 Vital Signs Reviewed: Yes Appearance: Positive: Well-Appearing Skin: Positive: Warm, Dry Head/Face: Positive: Normal Head/Face Inspection Eyes: Positive: Normal, EOMI, POLO, Conjunctiva Clear ENT: Positive: Normal ENT inspection, Pharynx normal, TMs normal Neck: Positive: Supple, Nontender, No Lymphadenopathy Respiratory/Lung Sounds: Positive: Clear to Auscultation, Breath Sounds Present Cardiovascular: Positive: Normal, RRR Abdomen Description: Positive: Nontender, Soft Bowel Sounds: Positive: Present Musculoskeletal: Positive: Strength/ROM Intact - legs, Other - good pulses, tremors noted to bilateral legs Neurological: Positive: Sensory/Motor Intact, CN Intact II-III Psychiatric: Positive: Normal - Yovany Coma Scale Best Eye Response: 4 - Spontaneous Best Motor Response: 6 - Obeys Commands Best Verbal Response: 5 - Oriented Coma Scale Total: 15 Diagnostics - Vital Signs Vital Signs Temp Pulse Resp BP Pulse Ox 11/26/18 19:00 78 98 11/26/18 18:55 81 194/78 97 11/26/18 18:25 79 196/86 98 11/26/18 18:00 82 95 11/26/18 17:55 81 192/84 95 02/09/19 17:25 78 188/87 94 02/09/19 17:00 80 96 11/26/18 16:55 99 F 82 20 194/83 96 - Laboratory Lab Results: Lab Results 11/26/18 11/26/18 11/26/18 Range/Units 18:00 18:00 18:00 WBC 6.2 (3.5-10.8) 10^3/ul RBC 4.18 (4.00-5.40) 10^6/ul Hgb 13.0 (12.0-16.0) g/dl Hct 39 (35-47) % MCV 93 (80-97) fL MCH 31 (27-31) pg MCHC 34 (31-36) g/dl RDW 14 (10.5-15) % Plt Count 435 (150-450) 10^3/ul MPV 6.3 L (7.4-10.4) fL Neut % (Auto) 81.9 % Lymph % (Auto) 11.7 % [place] % (Auto) 5.4 % Eos % (Auto) 0.4 % Baso % (Auto) 0.6 % Absolute Neuts (auto) 5.1 (1.5-7.7) 10^3/ul Absolute Lymphs (auto) 0.7 L (1.0-4.8) 10^3/ul Absolute Monos (auto) 0.3 (0-0.8) 10^3/ul Absolute Eos (auto) 0 (0-0.6) 10^3/ul Absolute Basos (auto) 0 (0-0.2) 10^3/ul Absolute Nucleated RBC 0 10^3/ul Nucleated RBC % 0 Sodium 139 (135-145) mmol/L Potassium 4.4 (3.5-5.0) mmol/L Chloride 106 (101-111) mmol/L Carbon Dioxide 28 (22-32) mmol/L Anion Gap 5 (2-11) mmol/L BUN 25 H (6-24) mg/dL Creatinine 0.66 (0.51-0.95) mg/dL Est GFR ( Amer) 104.3 (>60) Est GFR (Non-Af Amer) 86.2 (>60) BUN/Creatinine Ratio 37.9 H (8-20) Glucose 114 H (70-100) mg/dL Lactic Acid 0.5 (0.5-2.0) mmol/L Calcium 9.3 (8.6-10.3) mg/dL Magnesium 2.3 (1.9-2.7) mg/dL Total Bilirubin 0.30 (0.2-1.0) mg/dL AST 16 (13-39) U/L ALT 5 L (7-52) U/L Alkaline Phosphatase 97 (34-104) U/L Troponin I 0.00 (<0.04) ng/mL C-Reactive Protein 1.24 (<8.01) mg/L B-Natriuretic Peptide (<=100) pg/mL Total Protein 6.7 (6.4-8.9) g/dL Albumin 4.4 (3.2-5.2) g/dL Globulin 2.3 (2-4) g/dL Albumin/Globulin Ratio 1.9 (1-3) TSH 1.17 (0.34-5.60) mcIU/mL 11/26/18 Range/Units 18:00 WBC (3.5-10.8) 10^3/ul RBC (4.00-5.40) 10^6/ul Hgb (12.0-16.0) g/dl Hct (35-47) % MCV (80-97) fL MCH (27-31) pg MCHC (31-36) g/dl RDW (10.5-15) % Plt Count (150-450) 10^3/ul MPV (7.4-10.4) fL Neut % (Auto) % Lymph % (Auto) % [place] % (Auto) % Eos % (Auto) % Baso % (Auto) % Absolute Neuts (auto) (1.5-7.7) 10^3/ul Absolute Lymphs (auto) (1.0-4.8) 10^3/ul Absolute Monos (auto) (0-0.8) 10^3/ul Absolute Eos (auto) (0-0.6) 10^3/ul Absolute Basos (auto) (0-0.2) 10^3/ul Absolute Nucleated RBC 10^3/ul Nucleated RBC % Sodium (135-145) mmol/L Potassium (3.5-5.0) mmol/L Chloride (101-111) mmol/L Carbon Dioxide (22-32) mmol/L Anion Gap (2-11) mmol/L BUN (6-24) mg/dL Creatinine (0.51-0.95) mg/dL Est GFR ( Amer) (>60) Est GFR (Non-Af Amer) (>60) BUN/Creatinine Ratio (8-20) Glucose (70-100) mg/dL Lactic Acid (0.5-2.0) mmol/L Calcium (8.6-10.3) mg/dL Magnesium (1.9-2.7) mg/dL Total Bilirubin (0.2-1.0) mg/dL AST (13-39) U/L ALT (7-52) U/L Alkaline Phosphatase (34-104) U/L Troponin I (<0.04) ng/mL C-Reactive Protein (<8.01) mg/L B-Natriuretic Peptide 18 (<=100) pg/mL Total Protein (6.4-8.9) g/dL Albumin (3.2-5.2) g/dL Globulin (2-4) g/dL Albumin/Globulin Ratio (1-3) TSH (0.34-5.60) mcIU/mL Result Diagrams: 11/26/18 18:00 11/26/18 18:00 Lab Statement: Any lab studies that have been ordered have been reviewed, and results considered in the medical decision making process. - Radiology chest Radiology Interpretation Completed By: Radiologist Summary of Radiographic Findings: IMPRESSION: NO EVIDENCE FOR ACUTE DISEASE. - EKG No standard instances Cardiac Rate: NL EKG Rhythm: Sinus Rhythm ST Segment: Normal EKG Comparison: No Significant Change Summary of EKG Findings: sinus rhythm Re-Evaluation - Re-Evaluation First Eval Re-Evaluation Time: 19:50 Comment: patient wants her feet rubbed Second Eval Re-Evaluation Time: 20:30 Comment: patient wanted to go home. patient now states wants to be admitted so feet can be rubbed Third Eval Re-Evaluation Time: 21:12 Comment: still no visible sign of SOB. lungs CTA. tremors are less and patient is resting comfortable in bed Complex Multi-Symp Course/Dx Course Of Treatment: 78 [facility] fever and SOB. She was also noted to have an elevated BP. She states that she was not given her medications for her Parkinson's and she is having increasing tremors and pains in her legs. She states that her shortness of breath is at her baseline. no increase edema to legs. She has no fever while in the ED. She denies any urinary symptoms. No chest pain. On exam lungs clear to auscultation. Normal neuro exam. Has tremors noted of her legs. wbc normal. urine probably contaminant. crp normal. flu negative. gave Parkinson's medication and Ativan and patient is resting more comfortably. Patient keeps asking for her feet to be massaged. patient was comfortable with going home but then states wants to be admitted but discussed do not have reason for admission as not finding any infection occurring based on labs and physicial exam. gave dose of clonidine and hydrochlorthiazide for bp but unable to get a good bp reading as patient will not sit still. discussed needs to follow up with primary as if bp continues to be elevated may need to be started on long-term meds. patient understand and agrees with plan. [facility] called back and states need form faxed says appropiate for [facility] - Diagnoses Differential Diagnoses/HQI/PQRI: Metabolic Abnormality, Sepsis, Urinary Tract Infection Provider Diagnoses: Elevated blood pressure reading, Shortness of breath, Parkinson disease, Anxiety Discharge - Sign-Out/Discharge Documenting (check all that apply): Patient Departure Patient Received Moderate/Deep Sedation with Procedure: No - Discharge Plan Condition: Good Disposition: HOME Forms: *Gen. Provider Communication Referrals: An Wilkins MD [Primary Care Provider] - Additional Instructions: Should follow up with primary on Wednesday or Wednesday for repeat blood pressure check to see if need medication for high blood pressure Continue medication as prescribed Return to ED if develop any new or worsening symptoms - Billing Disposition and Condition Condition: GOOD Disposition: Home
[2018-11-26 19:46] LABS: Influenza A Molecular NEGATIVE (Negative); Influenza B Molecular NEGATIVE (Negative)
[2018-11-26 20:45] LABS: Urine Appearance Clear; Urine Bacteria Absent (Absent); Urine Bilirubin Negative (Negative); Urine Blood Negative (Negative); Urine Color Yellow; Urine Glucose Negative (Negative); Urine Ketones Trace (Negative); Urine Nitrite Negative (Negative); Urine Protein 2+(100 mg/dL) (Negative); Urine Red Blood Cell 2+(6-10/hpf) (Absent); Urine Specific Gravity 1.019 (1.010-1.030); Urine Urobilinogen Negative (Negative); Urine White Blood Cell Trace(0-5/hpf) (Absent)
[2018-11-26 22:04] VITALS: BP 159/91
== END | disposition home or self-care (01) ==
LOC: ED 16:34
DX: R03.0 Elevated blood-pressure reading, without diagnosis of hypertension (principal); R06.02 Shortness of breath; F41.9 Anxiety disorder, unspecified; G20 Parkinson's disease
CPT/HCPCS: 36415; 71045; 80053; 81003; 81015; 83605; 83735; 83880; 84443; 84484; 85025; 86140; 87086; 93005; 96374; 99283; A9270-GY